=== PATIENT | male | born 1935 | race Caucasian/White ===

== ENCOUNTER 2017-06-27 17:37 | Inpatient (IN) | payer OTHER ==
--- NOTE | 2017-06-27 18:18 | EDPHY ---
H & P Stated Complaint: cough, sore throat, fever, nasal cogestion x 2 days HPI/ROS: CHIEF COMPLAINT: Fever, cough, confusion HISTORY OF PRESENT ILLNESS: The patient is an 81 y/o male with h/o HTN arriving with his family complaining of a fever onset yesterday. They measured his fever at home as high as 103F, but it improved with antipyretics. He is staying hydrated with Pedialyte and is able to eat. He has an associated mild cough and sore throat. He denies chest pain or dyspnea, but his family has observed him gasping occasionally. [place]. He says his "memory isn't so good" and his family says this is a recent development and he seems more confused than normal with these symptoms. Denies abdominal pain, nausea, vomiting. He had a flu vaccination one week ago. He denies history of cardiac disease. He does get occasional leg swelling. REVIEW OF SYSTEMS: A ten point review of systems was performed and is negative with the exception of the items mentioned in the HPI. Past medical history: Hypercholesterolemia, hypertension, osteoarthritis, prior episode of pneumonia ~5yrs ago Past surgical history: Tonsillectomy, appendectomy Family history: Noncontributory Social history: and son at bedside. Visiting from [place], arrived 6 days ago. Retired lower school music teacher. Has not smoked for decades. General Appearance: Alert. Vital signs reviewed. 88% on room air. Blood pressure 151/66. Eyes: Pupils equal and round, no conjunctival injection, no discharge. Anicteric. ENT, Mouth: Mucous membranes are moist, no oropharyngeal erythema or edema. Neck: No lymphadenopathy, supple. Respiratory: Lungs are clear to auscultation; no wheezes, rales, or rhonchi. Cardiovascular: Regular rate and rhythm; no murmur, rub, or gallop. Gastrointestinal: Abdomen is soft and nontender, no masses or organomegaly, bowel sounds normal. Skin: Warm and dry, no rashes on exposed skin, normal color. Back: Nontender to palpation over the thoracolumbar spine. No CVAT. Extremities: Trace right lower extremity edema, 1+ left lower extremity edema, no calf tenderness or swelling. Neurological: Alert and oriented. Moving all four extremities easily and equally. Psychiatric: Normal affect. - Personal History Current Tetanus/Diphtheria Vaccine: Unsure Current Tetanus Diphtheria and Acellular Pertussis (TDAP): Unsure - Medical/Surgical History Hx Asthma: No Hx Chronic Respiratory Disease: No Hx Diabetes: No Hx Cardiac Disease: Yes Hx Renal Disease: No Hx Cirrhosis: No Hx Alcoholism: No Hx HIV/AIDS: No Hx Splenectomy or Spleen Trauma: No Other PMH: HTN, High cholest - Social History Smoking Status: Never smoked Constitutional: Initial Vital Signs Temperature (C) 38.1 C 06/27/17 17:43 Respiratory Rate 97 H 06/27/17 17:43 Blood Pressure 151/66 H 06/27/17 17:43 O2 Sat (%) 88 L 06/27/17 17:43 O2 Delivery Mode Nasal Cannula O2 (L/minute) 2 Allergies/Adverse Reactions: No Known Allergies Allergy (Verified 06/27/17 17:40) Home Medications: Medication Instructions Recorded Naproxen 500 mg PO BID PRN 06/25/14 amLODIPine BESYLATE [Norvasc 5 mg 5 mg PO DAILY 06/25/14 (*)] Ibuprofen [Motrin (*)] 400 mg PO Q8H PRN 06/27/17 Rosuvastatin Calcium [Crestor 10mg 10 mg PO DAILY 06/27/17 (RX)] Medical Decision Making - Diagnostics Imaging Results: Imaging Impressions Chest X-Ray 06/27/17 18:26 Impression: 1. Mild cardiomegaly. 2. Moderate perihilar bronchial wall thickening, suggestive of a virally- mediated bronchitis. There is no focal alveolar consolidation or pleural effusion. Imaging: Discussed imaging studies w/ recycling worker Radiologist, I viewed and interpreted images myself ED Course/Re-evaluation: This is an 81 y/o male who [place] and presents with a 1-day history of fever, cough, and ltfei-kdqj-pdebry confusion per family. He was hypoxemic in triage at 88% and has required O2 here. His lungs are clear on auscultation and he has some lower extremity edema on exam. He is afebrile. Plan for sepsis work up including IV, labs, UA, EKG, and chest x-ray. The 12 lead EKG was interpreted by myself. Sinus mechanism. See hard copy and/ or "tracemaster" electronic copy for interpretation. Troponin elevated at 0.053. Chest x-ray shows possible bronchitis per radiology. No infiltrate. No pulmonary edema. He has a positive flu A swab. I have recommended admission to him and his family for further observation and to monitor oxygenation status. Spoke with hospitalist service. Dr. Motta accepts admission. Differential Diagnosis: Fever in adults including but not limited to pneumonia, urinary tract infection , viral syndrome, and influenza. - Data Points Laboratory Results: Laboratory Results 06/27/17 18:39 06/27/17 18:39 06/27/17 06/27/17 06/27/17 20:00 18:39 18:39 WBC RBC Hgb Hct MCV MCH MCHC RDW Plt Count MPV Neut % (Auto) Lymph % (Auto) Coleman % (Auto) Eos % (Auto) Baso % (Auto) Nucleat RBC Rel Count Absolute Neuts (auto) Absolute Lymphs (auto) Absolute Monos (auto) Absolute Eos (auto) Absolute Basos (auto) Absolute Nucleated RBC Immature Gran % Immature Gran # VBG Lactic Acid 1.1 mmol/L mmol/L (0.7-2.1) Sodium 139 mEq/L mEq/L (134-144) Potassium 4.5 mEq/L mEq/L (3.5-5.2) Chloride 102 mEq/L mEq/L (97-110) Carbon Dioxide 25 mEq/l mEq/l (22-31) Anion Gap 12 mEq/L mEq/L (8-16) BUN 33 mg/dL H mg/dL (7-23) Creatinine 1.6 mg/dL H mg/dL (0.7-1.3) Estimated GFR 41 Glucose 117 mg/dL H mg/dL (70-100) Calcium 8.5 mg/dL mg/dL (8.5-10.4) Total Bilirubin 0.9 mg/dL mg/dL (0.1-1.4) Troponin I 0.053 ng/mL H ng/mL (0.000-0.034) NT-Pro-B Natriuret Pep 438 pg/mL pg/mL (0-450) Urine Color YELLOW Urine Appearance MODERATELY TURBID Urine pH 5.0 (5.0-7.5) Ur Specific [place] 1.023 (1.002-1.030) Urine Protein 2+ H (NEGATIVE) Urine Ketones NEGATIVE (NEGATIVE) Urine Blood 3+ H (NEGATIVE) Urine Nitrate NEGATIVE (NEGATIVE) Urine Bilirubin NEGATIVE (NEGATIVE) Urine Urobilinogen 2.0 EU H EU (0.2-1.0) Ur Leukocyte Esterase NEGATIVE (NEGATIVE) Urine RBC 1-3 /hpf /hpf (0-3) Urine WBC 1-3 /hpf /hpf (0-3) Ur Epithelial Cells TRACE /lpf /lpf (NONE-1+) Urine Mucus TRACE /lpf /lpf (NONE-1+) Urine Glucose NEGATIVE (NEGATIVE) 06/27/17 18:39 WBC 9.25 10^3/uL 10^3/uL (3.80-9.50) RBC 3.87 10^6/uL L 10^6/uL (4.40-6.38) Hgb 12.3 g/dL L g/dL (13.7-17.5) Hct 35.8 % L % (40.0-51.0) MCV 92.5 fL fL (81.5-99.8) MCH 31.8 pg pg (27.9-34.1) MCHC 34.4 g/dL g/dL (32.4-36.7) RDW 13.0 % % (11.5-15.2) Plt Count 151 10^3/uL 10^3/uL (150-400) MPV 9.4 fL fL (8.7-11.7) Neut % (Auto) 79.6 % H % (39.3-74.2) Lymph % (Auto) 11.7 % L % (15.0-45.0) Coleman % (Auto) 8.0 % % (4.5-13.0) Eos % (Auto) 0.0 % L % (0.6-7.6) Baso % (Auto) 0.2 % L % (0.3-1.7) Nucleat RBC Rel Count 0.0 % % (0.0-0.2) Absolute Neuts (auto) 7.36 10^3/uL H 10^3/uL (1.70-6.50) Absolute Lymphs (auto) 1.08 10^3/uL 10^3/uL (1.00-3.00) Absolute Monos (auto) 0.74 10^3/uL 10^3/uL (0.30-0.80) Absolute Eos (auto) 0.00 10^3/uL L 10^3/uL (0.03-0.40) Absolute Basos (auto) 0.02 10^3/uL 10^3/uL (0.02-0.10) Absolute Nucleated RBC 0.00 10^3/uL 10^3/uL (0-0.01) Immature Gran % 0.5 % % (0.0-1.1) Immature Gran # 0.05 10^3/uL 10^3/uL (0.00-0.10) VBG Lactic Acid Sodium Potassium Chloride Carbon Dioxide Anion Gap BUN Creatinine Estimated GFR Glucose Calcium Total Bilirubin Troponin I NT-Pro-B Natriuret Pep Urine Color Urine Appearance Urine pH Ur Specific [place] Urine Protein Urine Ketones Urine Blood Urine Nitrate Urine Bilirubin Urine Urobilinogen Ur Leukocyte Esterase Urine RBC Urine WBC Ur Epithelial Cells Urine Mucus Urine Glucose Microbiology Results: MICROBIOLOGY 06/27/17 18:55 Nasal, Sinus - Swab Respiratory Panel (PCR) - Final Influenza Virus Type A H3 Medications Given: Discontinued Medications Oseltamivir Phosphate (Tamiflu) 75 mg PO EDNOW ONE Stop: 06/27/17 21:01 Last Admin: 06/27/17 21:10 Dose: 75 mg Departure - Departure Disposition: [facility] Inpatient Acute Clinical Impression: Hypoxemia, Cough, Flu Condition: Fair Report Scribed for: Hannah Dutta Report Scribed by: Lakesha Mederos Date of Report: 06/27/17 Time of Report: 18:41 Physician Review and Approval Statement: 06/27/17 18:18 Portions of this note were transcribed by the medical management trainer. I, Dr. Hannah Dutta, personally performed the history, physical exam, and medical decision- making; and confirmed the accuracy of the information in the transcribed note.
[2017-06-27 18:52] LABS: % IMMATURE GRANULYOCYTES 0.5 % (0.0-1.1); ABSOLUTE IMMATURE GRANULOCYTES 0.05 10^3/uL (0.00-0.10); ADD DIFF? NO; ADD MORPH? NO; ADD SCAN? NO; ATYPICAL LYMPHOCYTE FLAG 0 (0-99); FRAGMENT RBC FLAG 0 (0-99); HEMATOCRIT 35.8 % (40.0-51.0); HEMOGLOBIN 12.3 g/dL (13.7-17.5); LEFT SHIFT FLG 10 (0-99); LIPEMIA HEMOLYSIS FLAG 90 (0-99); MEAN CELL HEMOGLOBIN 31.8 pg (27.9-34.1); MEAN CELL HEMOGLOBIN CONCENTR. 34.4 g/dL (32.4-36.7); MEAN CELL VOLUME 92.5 fL (81.5-99.8); MEAN PLATELET VOLUME 9.4 fL (8.7-11.7); PLATELET CLUMPS FLAG 0 (0-99); PLATELET COUNT 151 10^3/uL (150-400); RED BLOOD CELL COUNT 3.87 10^6/uL (4.40-6.38)
--- NOTE | 2017-06-27 19:04 | CPEKG ---
Heart Rate: 88 RR Interval: 682 P-R Interval: 156 QRSD Interval: 80 QT Interval: 384 QTC Interval: 465 P Vermillion: 31 QRS Vermillion: 25 T Wave [place]illion: 15 EKG Severity - BORDERLINE ECG - EKG Impression: SINUS RHYTHM EKG Impression: PROBABLE LEFT ATRIAL ABNORMALITY EKG Impression: BORDERLINE T WAVE ABNORMALITIES Electronically Signed By: Hannah Dutta 27-Jun-2017 20:48:05
[2017-06-27 19:06] LABS: ANION GAP 12 mEq/L (8-16); BILIRUBIN,TOTAL 0.9 mg/dL (0.1-1.4); CALCIUM 8.5 mg/dL (8.5-10.4); CARBON DIOXIDE 25 mEq/l (22-31); CHLORIDE 102 mEq/L (97-110); CREATININE 1.6 mg/dL (0.7-1.3); GLOMERULAR FILTRATION RATE 41; GLUCOSE 117 mg/dL (70-100); POTASSIUM 4.5 mEq/L (3.5-5.2); SODIUM 139 mEq/L (134-144)
[2017-06-27 19:19] LABS: TROPONIN I 0.053 ng/mL (0.000-0.034)
[2017-06-27 20:15] LABS: COLOR YELLOW; LEUKOCYTE ESTERASE,URINE NEGATIVE (NEGATIVE); NITRITE,URINE NEGATIVE (NEGATIVE)
[2017-06-27 20:20] LABS: MUCUS TRACE /lpf (NONE-1+)
[2017-06-27] MEDS ORDERED: OSELTAMIVIR PHOSPHATE 75 MG CAP PO ONE (21:00)
[2017-06-27] MEDS ORDERED: ONDANSETRON 4 MG/2 ML VIAL IVP PRN (23:01)
[2017-06-27] MEDS ORDERED: ACETAMINOPHEN 325 MG TAB PO PRN (23:01)
[2017-06-27] MEDS ORDERED: HYDROCODONE/APAP 5/325 TAB PO PRN (23:01)
[2017-06-27] MEDS: NS 1,000 ML IV SCH (23:26)
[2017-06-28 05:09] LABS: % IMMATURE GRANULYOCYTES 0.1 % (0.0-1.1); ABSOLUTE IMMATURE GRANULOCYTES 0.01 10^3/uL (0.00-0.10); ADD DIFF? NO; ADD MORPH? NO; ADD SCAN? NO; ATYPICAL LYMPHOCYTE FLAG 0 (0-99); FRAGMENT RBC FLAG 0 (0-99); HEMOGLOBIN 11.3 g/dL (13.7-17.5); LEFT SHIFT FLG 10 (0-99); LIPEMIA HEMOLYSIS FLAG 80 (0-99); MEAN CELL HEMOGLOBIN 31.3 pg (27.9-34.1); MEAN CELL HEMOGLOBIN CONCENTR. 33.2 g/dL (32.4-36.7); MEAN CELL VOLUME 94.2 fL (81.5-99.8); MEAN PLATELET VOLUME 9.3 fL (8.7-11.7); PLATELET CLUMPS FLAG 0 (0-99); PLATELET COUNT 137 10^3/uL (150-400); RED BLOOD CELL COUNT 3.61 10^6/uL (4.40-6.38); RED CELL DISTRIBUTION WIDTH 12.9 % (11.5-15.2)
[2017-06-28 05:26] LABS: ANION GAP 13 mEq/L (8-16); CARBON DIOXIDE 24 mEq/l (22-31); CHLORIDE 104 mEq/L (97-110); CREATININE 1.5 mg/dL (0.7-1.3); GLOMERULAR FILTRATION RATE 45; GLUCOSE 106 mg/dL (70-100); POTASSIUM 3.9 mEq/L (3.5-5.2); SODIUM 141 mEq/L (134-144)
[2017-06-28 05:38] LABS: TROPONIN I 0.046 ng/mL (0.000-0.034)
[2017-06-28] MEDS ORDERED: IBUPROFEN 200 MG TAB PO PRN (07:54)
[2017-06-28] MEDS ORDERED: OSELTAMIVIR PHOSPHATE 75 MG CAP PO SCH (08:00)
--- NOTE | 2017-06-28 09:50 | PDGENHP ---
History and Physical - Chief Complaint fever, cough, confusion - History of Present Illness Source - patient provides history and is fair historian. family has left for evening. EMR reviewed. HPI - Pleasant 81 yo F with pmx significant for HTN, HLD, OA who presents to the ED with family earlier today with concerns for fevers/cough/sob and increase in confusion. Patient denies any known sick contacts. He recently travelled her from [facility] 1 week ago. Patient reports symptoms started shortly after arrival to [place]. Patient states he received his flu shot prior to his visit. Patient family reported fever up to 103F at home. Patient denies any acute joint/muscle aches/pains. He reports rhinorrhea, occasionally productive cough and sob worse with exertion. Patient denies any chills or sweats. Patient repors his SOB improved since arrival and placement with oxygen. In the ED patient was noted to be hypoxic to 88% on RA. History Information - Allergies/Home Medication List Allergies/Adverse Reactions: No Known Allergies Allergy (Verified 06/27/17 17:40) Home Medications: Naproxen 500 mg PO BID PRN 06/25/14 [Last Taken 1 Week Ago ~06/20/17] amLODIPine BESYLATE [Norvasc 5 mg (*)] 5 mg PO DAILY 06/25/14 [Last Taken ] Ibuprofen [Motrin (*)] 400 mg PO Q8H PRN 06/27/17 [Last Taken 06/27/17 15:00] Rosuvastatin Calcium [Crestor 10mg (RX)] 10 mg PO DAILY 06/27/17 [Last Taken ] I have personally reviewed and updated: family history, medical history, social history, surgical history - Past Medical History arthritis (knees), hypertension, hyperlipidemia, pneumonia (2012) - Surgical History Additional surgical history: T/A. Appy - Family History Additional family history: patient denies any DM, HTN, CAD in the family. patient has adult childre adn reports all healthy. - Social History Smoking Status: Former smoker Alcohol Use: Occasionally Drug Use: None Additional social history: patient is . Lives with in [place]. Visiting son and [id number] for 3 weeks. COR - FULL. Review of Systems Review of Systems: ROS: 10pt was reviewed & negative except for what was stated in HPI & below Constitutional: Reports: fever, recent illness, other (no sweats. ). Denies: chills EENMT: Reports: nose congestion. Denies: ear discharge, blurred vision, eye pain, mouth pain, sore throat Cardiac: Denies: chest pain, edema, lightheadedness, palpitations Respiratory: Reports: cough (occasionally productive), shortness of breath ( exertional) Gastrointestinal: Denies: vomitting, diarrhea, nausea Genitourinary: Denies: dysuria, hematuria Muscolosketal: Reports: joint pain (bilateral knee pain). Denies: muscle pain, neck pain Skin: Reports: no symptoms. Denies: change in color, rash Neurological: Reports: no symptoms, other (memory deficits). Denies: anxiety, depressed, numbness, tingling, tremors, weakness Hematologic/Lymphatic: Denies: easy bleeding, easy bruising Physical Exam Physical Exam: Selected Entries 06/27/17 06/27/17 17:43 23:46 Blood Pressure Automatic Method Heart Rate 93 Respiratory 97 H 28 H Rate O2 Sat (%) 88 L 96 Temperature (C) 38.1 C 37.2 C Blood Pressure 151/66 H 166/57 H Mean Arterial 94 93 Pressure (MAP) O2 (L/minute) 2 Activity During At Rest Vital Signs O2 Delivery Room Air Nasal Cannula Mode Blood Pressure Right Source Upper Arm Temperature Oral Oral Source Temp Pulse Resp BP Pulse Ox 38.2 C 100 23 H 128/44 H 92 06/28/17 08:00 06/28/17 09:12 06/28/17 08:00 06/28/17 08:00 06/28/17 09:12 O2 (L/minute) 2 Constitutional: no apparent distress, not in pain, chronically ill appearing, obese, No uncomfortable Eyes: PERRL, anicteric sclera, EOMI, No icteric sclera, No scleral injection Ears, Nose, Mouth, Throat: poor dentition, dry mucous membranes, other (no nasal discharge. no oropharyngeal erythema/exudates. ), No no oral mucosal ulcers Cardiovascular: regular rate and rhythym, no murmur, rub, or gallop, edema (1+ pitting with chronic LE skin changes. ), other (slightly distant heart sounds 2/ 2 body habitus. ), No systolic murmur Peripheral Pulses: 1+: dorsalis-pedis (R), dorsalis-pedis (L) Respiratory: no respiratory distress, inspiratory crackles (basilar), No expiratory wheeze Gastrointestinal: normoactive bowel sounds, soft, non-tender abdomen, no palpable masses, other (obese abdomen), No guarding, No rebound, No distension Genitourinary: No no bladder tenderness, No pringle in urethra Skin: warm, normal color, other (patient appears a little flushed. nontoxic. ) Musculoskeletal: generalized weakness (patient requires assistance sitting up in bed. ), No no muscle tenderness Neurologic: AAOx3, sensation intact bilaterally, CN II-XII Intact, No weakness, No numbness, No facial droop Psychiatric: interacting appropriately, thought process linear, poor memory, other (patient in good spirits. ), No not anxious, No not encephalopathic, No anxious, No depressed, No poor insight, No poor judgement Lab Data & Imaging Review 06/28/17 04:16 06/28/17 04:16 WBC 7.37 10^3/uL (3.80-9.50) 06/28/17 04:16 RBC 3.61 10^6/uL (4.40-6.38) L 06/28/17 04:16 Hgb 11.3 g/dL (13.7-17.5) L 06/28/17 04:16 Hct 34.0 % (40.0-51.0) L 06/28/17 04:16 MCV 94.2 fL (81.5-99.8) 06/28/17 04:16 MCH 31.3 pg (27.9-34.1) 06/28/17 04:16 MCHC 33.2 g/dL (32.4-36.7) 06/28/17 04:16 RDW 12.9 % (11.5-15.2) 06/28/17 04:16 Plt Count 137 10^3/uL (150-400) L 06/28/17 04:16 MPV 9.3 fL (8.7-11.7) 06/28/17 04:16 Neut % (Auto) 75.2 % (39.3-74.2) H 06/28/17 04:16 Lymph % (Auto) 15.5 % (15.0-45.0) 06/28/17 04:16 Perry % (Auto) 8.8 % (4.5-13.0) 06/28/17 04:16 Eos % (Auto) 0.1 % (0.6-7.6) L 06/28/17 04:16 Baso % (Auto) 0.3 % (0.3-1.7) 06/28/17 04:16 Nucleat RBC Rel Count 0.0 % (0.0-0.2) 06/28/17 04:16 Absolute Neuts (auto) 5.54 10^3/uL (1.70-6.50) 06/28/17 04:16 Absolute Lymphs (auto) 1.14 10^3/uL (1.00-3.00) 06/28/17 04:16 Absolute Monos (auto) 0.65 10^3/uL (0.30-0.80) 06/28/17 04:16 Absolute Eos (auto) 0.01 10^3/uL (0.03-0.40) L 06/28/17 04:16 Absolute Basos (auto) 0.02 10^3/uL (0.02-0.10) 06/28/17 04:16 Absolute Nucleated RBC 0.00 10^3/uL (0-0.01) 06/28/17 04:16 Immature Gran % 0.1 % (0.0-1.1) 06/28/17 04:16 Immature Gran # 0.01 10^3/uL (0.00-0.10) 06/28/17 04:16 VBG Lactic Acid 1.1 mmol/L (0.7-2.1) 06/27/17 18:39 Sodium 141 mEq/L (134-144) 06/28/17 04:16 Potassium 3.9 mEq/L (3.5-5.2) 06/28/17 04:16 Chloride 104 mEq/L (97-110) 06/28/17 04:16 Carbon Dioxide 24 mEq/l (22-31) 06/28/17 04:16 Anion Gap 13 mEq/L (8-16) 06/28/17 04:16 BUN 31 mg/dL (7-23) H 06/28/17 04:16 Creatinine 1.5 mg/dL (0.7-1.3) H 06/28/17 04:16 Estimated GFR 45 06/28/17 04:16 Glucose 106 mg/dL (70-100) H 06/28/17 04:16 Calcium 8.0 mg/dL (8.5-10.4) L 06/28/17 04:16 Total Bilirubin 0.9 mg/dL (0.1-1.4) 06/27/17 18:39 Troponin I 0.046 ng/mL (0.000-0.034) H 06/28/17 04:16 NT-Pro-B Natriuret Pep 438 pg/mL (0-450) 06/27/17 18:39 Urine Color YELLOW 06/27/17 20:00 Urine Appearance MODERATELY TURBID 06/27/17 20:00 Urine pH 5.0 (5.0-7.5) 06/27/17 20:00 Ur Specific [place] 1.023 (1.002-1.030) 06/27/17 20:00 Urine Protein 2+ (NEGATIVE) H 06/27/17 20:00 Urine Ketones NEGATIVE (NEGATIVE) 06/27/17 20:00 Urine Blood 3+ (NEGATIVE) H 06/27/17 20:00 Urine Nitrate NEGATIVE (NEGATIVE) 06/27/17 20:00 Urine Bilirubin NEGATIVE (NEGATIVE) 06/27/17 20:00 Urine Urobilinogen 2.0 EU (0.2-1.0) H 06/27/17 20:00 Ur Leukocyte Esterase NEGATIVE (NEGATIVE) 06/27/17 20:00 Urine RBC 1-3 /hpf (0-3) 06/27/17 20:00 Urine WBC 1-3 /hpf (0-3) 06/27/17 20:00 Ur Epithelial Cells TRACE /lpf (NONE-1+) 06/27/17 20:00 Urine Mucus TRACE /lpf (NONE-1+) 06/27/17 20:00 Urine Glucose NEGATIVE (NEGATIVE) 06/27/17 20:00 Imaging Review: Upright Chest, PA and Lateral Views, at 6:46 PM Clinical History: 81-year-old male who is sick with a cough, fever, and shortness of breath. Comparison Study: None. Findings: Oxygen tubing is present. The cardiac silhouette is mildly enlarged in size. There is a moderate degree of central perihilar bronchial wall thickening. There is no fluid focal infiltrate , atelectasis, pleural effusion, peripheral interstitial edema, or pneumothorax. The trachea is midline. The osseous structures are age-appropriate, with DISH of the thoracic spine and advanced degenerative change of the visualized lumbar spine. Impression: 1. Mild cardiomegaly. 2. Moderate perihilar bronchial wall thickening, suggestive of a virally- mediated bronchitis. There is no focal alveolar consolidation or pleural effusion. GUANAKITO BOWMAN : 1935 Age: 81 FED UNIT NUM: [id number] PHYS: Hannah Dutta MD Report Status: Signed 1 of 1 Visualized and Interpreted Chest x-ray results: Yes Chest X-Ray results: no infiltrate, other (peribronchial wall thickening c/w virally mediated process) Visualized and Interpreted imaging results: Yes Visualized and Interpreted EKG results: Yes EKG Interpretation: Positive for: normal sinsus rhythm EKG additional interpertation: NSR 80s. no acute ST changes. t wave flattening inferior leads. no acute ST elevations. QTc 465 Assessment & Plan Assessment: 1. hypoxia - patient requiring minimal o2 supplementation. will titrate as needed to maintain o2 sat > 90%. exertional RA pulse ox in AM should home oxygen be required. 2. URI with influenza A - continue Tamiflu. 3. confusion - patient answers questions appropriate. possible change in mentation related to hypoxia or infectious status. overall memory is fair. family not available to review patient baseline. 4. benign essential HTN - monitor BPs. resume patient home amlodipine. 5. HLD - resume statin 6. obesity - cardiac diet. FEN - IVF overnight. electrolyate replacement prn. cardiac diet. PPX - SCDs. lovenox if patient should stay additional day. COR - FULL. Dispo -Admit obesevation on medical floor pending sx status.
[2017-06-28] MEDS: ROSUVASTATIN CALCIUM 10 MG TAB PO SCH (10:31)
[2017-06-28] MEDS: amLODIPine BESYLATE 5 MG TAB PO SCH (10:32)
[2017-06-28] MEDS: ENOXAPARIN 40 MG/0.4 ML SYR SC SCH (10:36)
--- NOTE | 2017-06-28 14:37 | ASMTCMCOM ---
CM Note CM Note Notes: Pt admitted with hypoxia and Influenza A. From [place], here a week visiting family. Hx HTN. No PT/OT orders at this time. CM will follow for any d/c needs. Date Signed: 06/28/2017 02:36 PM Electronically Signed By:DONN Thompson
[2017-06-28] MEDS: NS 1,000 ML IV SCH (15:13)
--- NOTE | 2017-06-28 15:39 | HOSPPROG ---
Hospitalist Progress Note Assessment/Plan: Patient is an 81-year-old gentleman who has a history of hypertension hyperlipidemia and osteoarthritis. He presented the emergency room with fevers cough shortness of breath and increased confusion. He recently traveled from the [place] area. His family reports that he has fevers up to 103 at home today is my 1st encounter with the patient. Chart reviewed. * acute hypoxemia requiring 3-4 liters of O2 normally on room air * influenza a with bronchitis tamiflu,will order azithromycin lungs congested, dry cough will add guaifenesin * confusion per his , he has some short term memory loss will see if he clears with treatment for the above * elevated troponin Likely demand ischemia due to the above *obesity with a BMI of 29 kg *BPH *HLD *dvt prophylaxis:LMWh *Plan:patient will require another midnight stay for close monitoring/ he is requiring oxygen and is feeling poorly. Repeat labs in a.m., add antibiotic and follow. Subjective: nOi wants to sleep. tired. Objective: Vital Signs Temp Pulse Resp BP Pulse Ox 37.4 C 96 20 159/64 H 93 06/28/17 11:11 06/28/17 11:11 06/28/17 11:11 06/28/17 11:11 06/28/17 11:11 Laboratory Results 06/28/17 04:16 06/28/17 04:16 06/27/17 06/28/17 06/29/17 05:59 05:59 05:59 Intake Total 1800 Output Total 100 450 Balance -100 1350 - Physical Exam Constitutional: chronically ill appearing, obese, uncomfortable Eyes: PERRL Ears, Nose, Mouth, Throat: hearing normal Cardiovascular: regular rate and rhythym Respiratory: rhonchi (scattered throughout, decreased at bases) Skin: warm Musculoskeletal: full muscle strength Neurologic: AAOx3 Psychiatric: interacting appropriately ICD10 Worksheet Patient Problems: Problems Problem Status Onset Cough Acute Flu Acute Hypoxemia Acute
[2017-06-28] MEDS: AZITHROMYCIN 250 MG TAB PO SCH (16:51)
--- NOTE | 2017-06-28 17:20 | PDMN ---
Medical Necessity Medical necessity: Patient meets INPT criteria per [facility] [employer] note and [facility] Pulmonary Disease GRG (acute hypoxemia (sat's in mid-80's on RA) w/ influenza A and bronchitis; renal insufficiency / Creat 1.6 ->1.5; hx of HTN, hyperlipidemia and OA; LOS will be > 2 midnights for ongoing IV hydration, supplemental O2, continuation of Tamiflu; need for recheck of labs.).
[2017-06-28] MEDS: OSELTAMIVIR 6 MG/ML UDSYR PO SCH (18:22)
[2017-06-28] MEDS: guaiFENesin 600 MG TAB.ER PO SCH (19:57)
[2017-06-28] MEDS ORDERED: OSELTAMIVIR PHOSPHATE 75 MG CAP PO ONE (21:00)
[2017-06-29 05:12] LABS: ADD MORPH? NO; ADD SCAN? YES; ATYPICAL LYMPHOCYTE FLAG 0 (0-99); FRAGMENT RBC FLAG 0 (0-99); HEMATOCRIT 32.6 % (40.0-51.0); HEMOGLOBIN 10.9 g/dL (13.7-17.5); LEFT SHIFT FLG 170 (0-99); LIPEMIA HEMOLYSIS FLAG 80 (0-99); MEAN CELL HEMOGLOBIN 31.7 pg (27.9-34.1); MEAN CELL HEMOGLOBIN CONCENTR. 33.4 g/dL (32.4-36.7); MEAN CELL VOLUME 94.8 fL (81.5-99.8); MEAN PLATELET VOLUME 9.2 fL (8.7-11.7); PLATELET CLUMPS FLAG 0 (0-99); PLATELET COUNT 132 10^3/uL (150-400); RED BLOOD CELL COUNT 3.44 10^6/uL (4.40-6.38); RED CELL DISTRIBUTION WIDTH 12.9 % (11.5-15.2)
[2017-06-29 05:29] LABS: ALANINE AMINOTRANSFERASE 49 IU/L (21-72); ALKALINE PHOSPHATASE 54 IU/L (38-126); ANION GAP 9 mEq/L (8-16); ASPARTATE AMINOTRANSFERASE 66 IU/L (17-59); BILIRUBIN,TOTAL 0.8 mg/dL (0.1-1.4); CALCIUM 7.9 mg/dL (8.5-10.4); CARBON DIOXIDE 26 mEq/l (22-31); CHLORIDE 104 mEq/L (97-110); CREATININE 1.5 mg/dL (0.7-1.3); GLOMERULAR FILTRATION RATE 45; GLUCOSE 106 mg/dL (70-100); POTASSIUM 3.9 mEq/L (3.5-5.2); SODIUM 139 mEq/L (134-144); TOTAL PROTEIN 5.5 g/dL (6.3-8.2)
[2017-06-29 05:37] LABS: TROPONIN I 0.037 ng/mL (0.000-0.034)
[2017-06-29 05:40] LABS: ADD DIFF? YES; SCAN POSITIVE
[2017-06-29 05:45] LABS: PLATELET ESTIMATE DECREASED (ADEQ); TOXIC GRANULATION PRESENT; TOXIC VACUOLIZATION PRESENT
[2017-06-29 05:46] LABS: MACROCYTES 1+
[2017-06-29 05:53] LABS: PROCALCITONIN 0.27 ng/mL (0.02-0.10)
[2017-06-29] MEDS: ROSUVASTATIN CALCIUM 10 MG TAB PO SCH (09:46)
[2017-06-29] MEDS: amLODIPine BESYLATE 5 MG TAB PO SCH (09:47)
[2017-06-29] MEDS: AZITHROMYCIN 250 MG TAB PO SCH (09:50)
[2017-06-29] MEDS: guaiFENesin 600 MG TAB.ER PO SCH ×2 (09:51→21:29)
[2017-06-29] MEDS: ENOXAPARIN 40 MG/0.4 ML SYR SC SCH (09:52)
[2017-06-29] MEDS: OSELTAMIVIR 6 MG/ML UDSYR PO SCH ×2 (10:02→17:47)
--- NOTE | 2017-06-29 13:59 | HOSPPROG ---
Hospitalist Progress Note Assessment/Plan: Patient is an 81-year-old gentleman who has a history of hypertension hyperlipidemia and osteoarthritis. He presented the emergency room with fevers cough shortness of breath and increased confusion. He recently traveled from the [place] area. His family reports that he has fevers up to 103 at home today is my * acute hypoxemia requiring 3-4 liters of O2 normally on room air * influenza a with bronchitis tamiflu,will order azithromycin + ceftriaxone Procalcitonin 0.27 showing a bacterial infection will add duonebs blood cx NGTD *anemia & thrombocytopenia cont monitoring will need f/u with his PCP * elevated troponin Likely demand ischemia due to the above *renal insufficiency: I am unclear of his baseline/family isn't sure will have him f/u with his PCP *alcohol use 2 drinks a nite / rye will order a glass of wine with dinner not withdrawing *mild encephalopathy clearing per family *obesity with a BMI of 29 kg *BPH *HLD *dvt prophylaxis:LMWh *Plan: he is still requiring 3 liters of O2, slowly improving/ not quite ready for dc Subjective: Don is still feeling poorly. Objective: Vital Signs Temp Pulse Resp BP Pulse Ox 36.8 C 81 20 127/61 H 92 06/29/17 11:57 06/29/17 11:57 06/29/17 11:57 06/29/17 11:57 06/29/17 11:57 Laboratory Results 06/29/17 04:23 06/29/17 04:23 06/28/17 06/29/17 06/30/17 05:59 05:59 05:59 Intake Total 622 Output Total 300 Balance 622 -300 - Physical Exam Constitutional: appears nourished, not in pain, obese Eyes: PERRL Ears, Nose, Mouth, Throat: hearing normal Cardiovascular: regular rate and rhythym Respiratory: no respiratory distress, reduced air movement Gastrointestinal: normoactive bowel sounds Skin: warm Neurologic: AAOx3 Psychiatric: interacting appropriately, not anxious, poor memory ICD10 Worksheet Patient Problems: Problems Problem Status Onset Cough Acute Flu Acute Hypoxemia Acute
[2017-06-29] MEDS ORDERED: BISACODYL 10 MG SUPP PR PRN (17:44)
[2017-06-29] MEDS ORDERED: POLYETHYLENE GLYCOL 3350 17 GM PKT PO PRN (17:44)
[2017-06-29] MEDS ORDERED: LACTULOSE 20 GM/30 ML UDCUP PO PRN (17:44)
[2017-06-29] MEDS: IPRATROPIUM/ALBUTEROL 3 ML DEYVIAL IH SCH (18:04)
[2017-06-29] MEDS: RED WINE 120 ML BOTTLE PO SCH (19:45)
[2017-06-29] MEDS: SENNOSIDES/DOCUSATE SODIUM TAB PO SCH (21:29)
[2017-06-30] MEDS: IPRATROPIUM/ALBUTEROL 3 ML DEYVIAL IH SCH ×4 (00:10→17:34)
[2017-06-30 05:19] LABS: ALANINE AMINOTRANSFERASE 78 IU/L (21-72); ALBUMIN 3.1 g/dL (3.5-5.0); ALKALINE PHOSPHATASE 76 IU/L (38-126); ANION GAP 9 mEq/L (8-16); ASPARTATE AMINOTRANSFERASE 105 IU/L (17-59); BILIRUBIN,TOTAL 0.6 mg/dL (0.1-1.4); CALCIUM 8.2 mg/dL (8.5-10.4); CARBON DIOXIDE 26 mEq/l (22-31); CHLORIDE 104 mEq/L (97-110); CREATININE 1.3 mg/dL (0.7-1.3); GLOMERULAR FILTRATION RATE 53; GLUCOSE 105 mg/dL (70-100); SODIUM 139 mEq/L (134-144); TOTAL PROTEIN 5.6 g/dL (6.3-8.2)
[2017-06-30] MEDS: ROSUVASTATIN CALCIUM 10 MG TAB PO SCH (10:12)
[2017-06-30] MEDS: OSELTAMIVIR 6 MG/ML UDSYR PO SCH ×2 (10:12→19:11)
[2017-06-30] MEDS: guaiFENesin 600 MG TAB.ER PO SCH ×2 (10:12→20:16)
[2017-06-30] MEDS: AZITHROMYCIN 250 MG TAB PO SCH (10:13)
[2017-06-30] MEDS: ENOXAPARIN 40 MG/0.4 ML SYR SC SCH (10:17)
[2017-06-30] MEDS: amLODIPine BESYLATE 5 MG TAB PO SCH (10:17)
[2017-06-30] MEDS: SENNOSIDES/DOCUSATE SODIUM TAB PO SCH ×2 (10:27→20:17)
--- NOTE | 2017-06-30 11:06 | HOSPPROG ---
Hospitalist Progress Note Assessment/Plan: Patient is an 81-year-old gentleman who has a history of hypertension hyperlipidemia and osteoarthritis. He presented the emergency room with fevers cough shortness of breath and increased confusion. He recently traveled from the [place] area. His family reports that he has fevers up to 103 at home. * acute hypoxemia requiring 3 liters of O2 normally on room air will ask nursing staff to do a room air challenge * influenza a with bronchitis tamiflu,will order azithromycin + ceftriaxone Procalcitonin 0.27 showing a bacterial infection will add duonebs blood cx NGTD * afib with rvr/had been in sinus rhythm will get a 12 lead likely from acute illness will ask cards to see CHADS2-VAS2 score is moderate Per , has been told he has had this sometimes *anemia & thrombocytopenia cont monitoring will need f/u with his PCP * elevated troponin Likely demand ischemia due to the above *renal insufficiency: I am unclear of his baseline/family isn't sure will have him f/u with his PCP *alcohol use 2 drinks a nite / rye will order a glass of wine with dinner not withdrawing *mild encephalopathy clearing per family *obesity with a BMI of 29 kg *BPH *HLD *dvt prophylaxis:LMWh *Plan: Dr Avendaño with cardiology to see , appreciate his involvement. Hopefully, the patient will be ready for dc in the next 1-2 days. Subjective: Don is feeling better, but says he isn't feeling quite well enough just yet. Objective: Vital Signs Temp Pulse Resp BP Pulse Ox 37 C 89 18 159/70 H 95 06/30/17 07:51 06/30/17 07:51 06/30/17 07:51 06/30/17 10:17 06/30/17 07:51 Laboratory Results 06/29/17 04:23 06/30/17 04:28 06/29/17 06/30/17 07/01/17 05:59 05:59 05:59 Intake Total 622 673 Output Total 1400 300 Balance 452 -055 -300 - Physical Exam Constitutional: not in pain, chronically ill appearing, obese Eyes: PERRL Ears, Nose, Mouth, Throat: hearing normal Cardiovascular: irregularly irregular Respiratory: no respiratory distress, rhonchi (right base, lung sounds overall improved) Skin: warm Musculoskeletal: generalized weakness Neurologic: AAOx3 Psychiatric: interacting appropriately ICD10 Worksheet Patient Problems: Problems Problem Status Onset Cough Acute Flu Acute Hypoxemia Acute
--- NOTE | 2017-06-30 11:54 | CPEKG ---
Heart Rate: 85 RR Interval: 706 P-R Interval: 128 QRSD Interval: 88 QT Interval: 372 QTC Interval: 443 P [place]: -41 QRS [place]: 23 T Wave [place]: 5 EKG Severity - ABNORMAL ECG - EKG Impression: SINUS RHYTHM EKG Impression: MULTIPLE ATRIAL PREMATURE COMPLEXES EKG Impression: BORDERLINE T WAVE ABNORMALITIES Electronically Signed By: Ajith Baig 01-Jul-2017 11:38:27
--- NOTE | 2017-06-30 12:08 | PDCARCONS ---
Cardiology Consult Reason for Consult: Irregular heart rhythm. Chief Complaint: Irregular heart rhythm. Requesting Physician: Bianca Boston. History of Present Illness: 81-year-old male admitted to the hospital because being on June 27 after he presented with high-grade fevers up to 103 degrees F, cough and confusion. Ultimately, he was diagnosed with influenza a associated with bronchitis and hypoxemia. During his hospitalization here he has been monitored on telemetry. He has been in sinus rhythm occasionally with episodes of an irregular heartbeat sometimes associated with tachycardia. In talking to him, he states that he has been told that he has had an irregular heartbeat in the past. He does not recall ever having been told that he has had atrial fibrillation. He has never been on systemic anticoagulation with Coumadin. He denies any other cardiac history. His is with him today. She is concerned that he might have obstructive sleep apnea. He notes that he is not currently experiencing any anginal quality chest discomfort. He did have an episode of sharp left-sided chest pain which is family related to me as part of this interview. He gives no history of dizziness or lightheadedness. He denies orthopnea, PND and edema. History Information - Allergies/Home Medication List Allergies/Adverse Reactions: No Known Allergies Allergy (Verified 06/27/17 17:40) Home Medications: Naproxen 500 mg PO BID PRN 06/25/14 [Last Taken 1 Week Ago ~06/20/17] amLODIPine BESYLATE [Norvasc 5 mg (*)] 5 mg PO DAILY 06/25/14 [Last Taken ] Ibuprofen [Motrin (*)] 400 mg PO Q8H PRN 06/27/17 [Last Taken 06/27/17 15:00] Rosuvastatin Calcium [Crestor 10mg (RX)] 10 mg PO DAILY 06/27/17 [Last Taken ] I have personally reviewed and updated: family history, medical history, social history, surgical history Past Medical History: - Social History Smoking Status: Former smoker Alcohol Use: Occasionally Drug Use: None Cardiac History - Cardiac History Cardiac Risk Factors: hypertension (>140/90), lipidemia, age > 65, male Physical Exam Physical Exam: Temp Pulse Resp BP Pulse Ox 37 C 89 18 159/70 H 95 06/30/17 07:51 06/30/17 07:51 06/30/17 07:51 06/30/17 10:17 06/30/17 07:51 O2 (L/minute) 3 Constitutional: no apparent distress, other (Wearing nasal cannula oxygen) Eyes: PERRL Ears, Nose, Mouth, Throat: moist mucous membranes Cardiovascular: irregularly irregular, pulses symmetric bilaterally, No diastolic murmur, No JVD, No carotid bruit Peripheral Pulses: 2+: carotid (R), carotid (L) Respiratory: no respiratory distress, no rales or rhonchi, clear to auscultation Gastrointestinal: normoactive bowel sounds, soft, non-tender abdomen, no palpable masses Skin: warm Musculoskeletal: full muscle strength Neurologic: AAOx3 Psychiatric: interacting appropriately Lab and Imaging 06/29/17 04:23 06/30/17 04:28 WBC 7.01 10^3/uL (3.80-9.50) 06/29/17 04:23 RBC 3.44 10^6/uL (4.40-6.38) L 06/29/17 04:23 Hgb 10.9 g/dL (13.7-17.5) L 06/29/17 04:23 Hct 32.6 % (40.0-51.0) L 06/29/17 04:23 MCV 94.8 fL (81.5-99.8) 06/29/17 04:23 MCH 31.7 pg (27.9-34.1) 06/29/17 04:23 MCHC 33.4 g/dL (32.4-36.7) 06/29/17 04:23 RDW 12.9 % (11.5-15.2) 06/29/17 04:23 Plt Count 132 10^3/uL (150-400) L 06/29/17 04:23 MPV 9.2 fL (8.7-11.7) 06/29/17 04:23 Neut % (Auto) Not Reported 06/29/17 04:23 Lymph % (Auto) Not Reported 06/29/17 04:23 [place] % (Auto) Not Reported 06/29/17 04:23 Eos % (Auto) Not Reported 06/29/17 04:23 Baso % (Auto) Not Reported 06/29/17 04:23 Nucleat RBC Rel Count 0.0 % (0.0-0.2) 06/29/17 04:23 Absolute Neuts (auto) Not Reported 06/29/17 04:23 Absolute Lymphs (auto) Not Reported 06/29/17 04:23 Absolute Monos (auto) Not Reported 06/29/17 04:23 Absolute Eos (auto) Not Reported 06/29/17 04:23 Absolute Basos (auto) Not Reported 06/29/17 04:23 Absolute Nucleated RBC 0.00 10^3/uL (0-0.01) 06/29/17 04:23 Immature Gran % Not Reported 06/29/17 04:23 Seg Neutrophils % 35 % 06/29/17 04:23 Band Neutrophils % 39 % 06/29/17 04:23 Lymphocytes % 21 % 06/29/17 04:23 Monocytes % 5 % 06/29/17 04:23 Immature Gran # Not Reported 06/29/17 04:23 Absolute Seg Neuts 2.45 10^/uL (1.70-6.50) 06/29/17 04:23 Absolute Band Neuts 2.73 10^3/uL (0.00-0.70) H 06/29/17 04:23 Absolute Lymphocytes 1.47 10^3/uL (1.00-3.00) 06/29/17 04:23 Absolute Monocytes 0.35 10^3/uL (0.30-0.80) 06/29/17 04:23 Toxic Granulation PRESENT H 06/29/17 04:23 Toxic Vacuolation PRESENT H 06/29/17 04:23 Dohle Bodies PRESENT H 06/29/17 04:23 Platelet Estimate DECREASED (ADEQ) L 06/29/17 04:23 Oval Macrocytes 1+ H 06/29/17 04:23 VBG Lactic Acid 1.1 mmol/L (0.7-2.1) 06/27/17 18:39 Sodium 139 mEq/L (134-144) 06/30/17 04:28 Potassium 4.0 mEq/L (3.5-5.2) 06/30/17 04:28 Chloride 104 mEq/L (97-110) 06/30/17 04:28 Carbon Dioxide 26 mEq/l (22-31) 06/30/17 04:28 Anion Gap 9 mEq/L (8-16) 06/30/17 04:28 BUN 30 mg/dL (7-23) H 06/30/17 04:28 Creatinine 1.3 mg/dL (0.7-1.3) 06/30/17 04:28 Estimated GFR 53 06/30/17 04:28 Glucose 105 mg/dL (70-100) H 06/30/17 04:28 Calcium 8.2 mg/dL (8.5-10.4) L 06/30/17 04:28 Total Bilirubin 0.6 mg/dL (0.1-1.4) 06/30/17 04:28 AST 105 IU/L (17-59) H 06/30/17 04:28 ALT 78 IU/L (21-72) H 06/30/17 04:28 Alkaline Phosphatase 76 IU/L (38-126) 06/30/17 04:28 Troponin I 0.037 ng/mL (0.000-0.034) H 06/29/17 04:23 NT-Pro-B Natriuret Pep 438 pg/mL (0-450) 06/27/17 18:39 Total Protein 5.6 g/dL (6.3-8.2) L 06/30/17 04:28 Albumin 3.1 g/dL (3.5-5.0) L 06/30/17 04:28 Procalcitonin 0.27 ng/mL (0.02-0.10) H 06/29/17 04:23 Urine Color YELLOW 06/27/17 20:00 Urine Appearance MODERATELY TURBID 06/27/17 20:00 Urine pH 5.0 (5.0-7.5) 06/27/17 20:00 Ur Specific [place] 1.023 (1.002-1.030) 06/27/17 20:00 Urine Protein 2+ (NEGATIVE) H 06/27/17 20:00 Urine Ketones NEGATIVE (NEGATIVE) 06/27/17 20:00 Urine Blood 3+ (NEGATIVE) H 06/27/17 20:00 Urine Nitrate NEGATIVE (NEGATIVE) 06/27/17 20:00 Urine Bilirubin NEGATIVE (NEGATIVE) 06/27/17 20:00 Urine Urobilinogen 2.0 EU (0.2-1.0) H 06/27/17 20:00 Ur Leukocyte Esterase NEGATIVE (NEGATIVE) 06/27/17 20:00 Urine RBC 1-3 /hpf (0-3) 06/27/17 20:00 Urine WBC 1-3 /hpf (0-3) 06/27/17 20:00 Ur Epithelial Cells TRACE /lpf (NONE-1+) 06/27/17 20:00 Urine Mucus TRACE /lpf (NONE-1+) 06/27/17 20:00 Urine Glucose NEGATIVE (NEGATIVE) 06/27/17 20:00 Visualized and Interpreted Chest x-ray results: Yes Visualized and Interpreted imaging results: Yes Visualized and Interpreted EKG results: Yes EKG Interpretation: Positive for: normal sinsus rhythm, other (Frequent PACs, nonspecific ST/T changes.) A/P Assessment: 81-year-old male currently admitted to the hospital with influenza a associated with bronchitis. Past medical history significant for hypertension, hyperlipidemia and obesity. During his hospitalization here he has been noted to have an irregular heart rhythm. On his ECG has sinus rhythm with frequent PACs. During periods of time when he is tachycardic this is also noted. I have not seen any indication of atrial fibrillation. He has not experienced any chest pain during this hospitalization although did have an episode of sharp left-sided chest discomfort when he was at home. Does have a mild troponin elevation. His initial troponin at admission was 0.053 and subsequently 0.046 and 0.037. Has not had any ECG changes. Plan: 1. I would like to start low-dose aspirin 162 mg daily. 2. I will order an echocardiogram which can be done in the morning. 3. As long as his echocardiogram is normal I do not think he requires any further inpatient testing. If he has wall motion abnormalities on the echocardiogram I would consider diagnostic coronary angiography. If the echocardiogram is normal I think he can have a stress test done when he returns home. 4. Asked the family to make sure they make an appointment with their primary care doctor when they returned home. I think he would benefit from an outpatient evaluation for sleep apnea and probably pulmonary function testing as well. 5. We also discussed the necessity for weight loss. 6. We will sign off for now. Please re-consult if he has a significantly abnormal echocardiogram. Past Medical History PMH: - Medical/Surgical History Hx Asthma: No Hx Chronic Respiratory Disease: No Hx Cardiac Disease: Yes Hx Diabetes: No Hx Renal Disease: No Hx Alcoholism: No Hx Cirrhosis: No Hx HIV/AIDS: No Hx Splenectomy or Spleen Trauma: No Other PMH: HTN, High cholest - Social History Smoking Status: Former smoker
[2017-06-30] MEDS: ASPIRIN 81 MG CHEWABLE TAB PO SCH (12:55)
--- NOTE | 2017-06-30 14:34 | ASMTCMCOM ---
CM Note CM Note Notes: Chart reviewed. Patientt admitted with fever, influenza. He was seen by [facility] medicine and cardiology today. Like dc tomorrow to home with family. No needs identified. CM to follow. Date Signed: 06/30/2017 02:34 PM Electronically Signed By:Zuleyma Jimenez RN
[2017-06-30] MEDS: RED WINE 120 ML BOTTLE PO SCH (19:11)
[2017-07-01] MEDS: IPRATROPIUM/ALBUTEROL 3 ML DEYVIAL IH SCH ×3 (01:12→10:14)
[2017-07-01 04:20] VITALS: PULSE 86
[2017-07-01 07:28] VITALS: BP 166/67; TEMP 98.1
[2017-07-01] MEDS: AZITHROMYCIN 250 MG TAB PO SCH (08:33)
[2017-07-01] MEDS: amLODIPine BESYLATE 5 MG TAB PO SCH (08:33)
[2017-07-01] MEDS: ASPIRIN 81 MG CHEWABLE TAB PO SCH (08:33)
[2017-07-01] MEDS: guaiFENesin 600 MG TAB.ER PO SCH (08:33)
[2017-07-01] MEDS: ROSUVASTATIN CALCIUM 10 MG TAB PO SCH (08:33)
[2017-07-01] MEDS: SENNOSIDES/DOCUSATE SODIUM TAB PO SCH (08:33)
[2017-07-01] MEDS: ENOXAPARIN 40 MG/0.4 ML SYR SC SCH (08:34)
[2017-07-01] MEDS: OSELTAMIVIR 6 MG/ML UDSYR PO SCH (08:34)
[2017-07-01 10:35] VITALS: RESP 14; O2SAT 98
--- NOTE | 2017-07-01 12:15 | ECHO ---
[email or web address] [address] [address] Main: [phone] Fax: Transthoracic Echocardiogram Name: GUANAKITO BOWMAN MR#: [id number] Study Date: 07/01/2017 Study Time: 07:47 AM Date of : 1935 Age: 81 year(s) Height: 175.3 cm (69 in.) Weight: 92.08 kg (203 lb.) BSA: 2.08 m2 Gender: Male Examination: Echo Indication: Slight TN-I elevation 166 Image Quality: Contrast: Requested by: Julien Avendaño BP: 166 mmHg/67 mmHg Heart Rate: Rhythm: Indication: Slight TN-I elevation Procedure Staff Director Insurance: Winifred Dotson Reading Physician: Jett Mota Requesting Provider: Conclusions: Normal size left ventricle. The ejection fraction is estimated to be 70-75 %. The left atrium is mildly dilated. Mild mitral annular calcification. Mild mitral valve regurgitation is present. Mild aortic valve regurgitation is present. Mild tricuspid regurgitation is present. RVSP is 49mmHG.. Pulmonary valve not well visualized. Measurements: Chambers Valvular Assessment AV/MV Valvular Assessment TV/PV Normal Normal Normal Name Value Range Name Value Range Name Value Range Ao [place]a (MM): 3.5 cm (2.2 cm-3.7 AV meanP mmHg ( - ) TR Vmax: 3.31 mm/s ( - ) cm) MV E Vmax: 0.99 m/s ( - ) TR PGmax: 44 mmHg ( - ) IVSd (2D): 1.0 cm (0.6 cm-1.1 MV A Vmax: 0.99 m/s ( - ) syst. PAP: 49 mmHg ( - ) cm) MV E/A: 1.00 ( - ) LVDd (2D): 5.0 cm (4.2 cm-5.9 cm) LVDs (2D): 3.0 cm (2.1 cm-4 cm) LVPWd (2D): 1.0 cm (0.6 cm-1 cm) LVEF (2D): 70 (>=54 %) EF Range: 70-75 % Continued Measurements: Chambers Valvular Assessment AV/MV Valvular Assessment TV/PV Patient: GUANAKITO BOWMAN Study Date: 07/01/2017 Page 1 of 2 07:47 AM Name Value Name Value Name Value LADs: 4.2 cm MV E/E' Septal: 19.50 CVP (est.): 5 mmHg LADs Lon.3 cm MV E/E' Lateral: 15.30 LA Area: 22.8 cm2 Findings: Left Ventricle: Normal size left ventricle. No LV hypertrophy. Global hypercontractility of the left ventricle. The ejection fraction is estimated to be 70-75 %. No regional wall motion abnormality. Diastolic dysfunction is present. . Right Ventricle: Normal size right ventricle. Left Atrium: The left atrium is mildly dilated. Right Atrium: The right atrium is normal in size. Mitral Valve: Mild mitral annular calcification. Mild mitral valve regurgitation is present. Aortic Valve: The aortic valve is normal in appearance and function. The aortic valve is tri-leaflet. Mild aortic valve regurgitation is present. Tricuspid Valve: The tricuspid valve is normal in appearance and function. Mild tricuspid regurgitation is present. The pulmonary artery pressure is mildly increased. RVSP is 49mmHG.. Pulmonic Valve: Pulmonary valve not well visualized. Aorta: The aorta is normal. Pericardium: No pericardial effusion. (No Signature Object) Patient: GUANAKITO BOWMAN Study Date: 07/01/2017 Page 2 of 2 07:47 AM [id number]
--- NOTE | 2017-07-01 16:38 | ASDISCHSUM ---
Discharge Information Plan Status:Home with No Needs Medically Cleared to Leave:06/30/2017 Discharge Date:07/01/2017 03:11 PM CM D/C Disposition: ADT D/C Disposition:Home, Routine, Self-Care Projected Discharge Date:07/01/2017 12:00 AM Transportation at D/C: Discharge Delay Reason: Follow-Up Date:07/01/2017 12:00 AM Discharge Slot: Final Diagnosis: Placement Information Patient Contact Information Contact Name:MICKY Relationship:Son Address:[address] Work Phone: City:[place] [facility] Phone: State/Zip Code:[place] [address] Email: Financial Information Financial Class:Commercial Primary Plan Desc:[employer] Primary Plan Number:[id number] Secondary Plan Desc: Secondary Plan Number: Assessment Information [facility] CM Progress Note CM Note CM Note Notes: Pt admitted with hypoxia and Influenza A. From [place], here a week visiting family. Hx HTN. No PT/OT orders at this time. CM will follow for any d/c needs. Date Signed: 06/28/2017 02:36 PM Electronically Signed By:DONN Thompson LACE ANA MARIA Length of stay for Answers: 2 days current admission Acuity / Level of Care Answers: Was the patient admitted to hospital via the emergency department? Yes: Emergency dept visits in Answers: 0 last 6 months Score: 5 Date Signed: 06/30/2017 02:32 PM Electronically Signed By:Zuleyma Jimenez RN [facility] Progress Note CM Note CM Note Notes: Chart reviewed. Patientt admitted with fever, influenza. He was seen by [facility] medicine and cardiology today. Like dc tomorrow to home with family. No needs identified. CM to follow. Date Signed: 06/30/2017 02:34 PM Electronically Signed By:Zuleyma Jimenez RN Intervention Information
--- NOTE | 2017-07-01 22:52 | GDS ---
[f rep st] DISCHARGE SUMMARY DISCHARGE DIAGNOSES: Include: 1. Acute influenza A. 2. Acute hypoxic respiratory failure secondary to influenza A and presumed secondary bacterial pneum onia. 3. Presumed bacterial pneumonia secondary to leukocytosis and elevated procalcitonin. 4. Troponin elevation, presumed secondary to acute illness. HISTORY OF PRESENT ILLNESS: This is an 81-year-old male, who presented on 06/28/2017, with complaint s of shortness of breath and weakness. For details of patient's initial presentation, please see the History and Physical dated 06/28/2017. CONSULTATIVE SERVICES: Include Cardiology. PROCEDURES: Transthoracic echocardiogram that showed no segmental wall motion abnormalities. HOSPITAL COURSE: By issue: 1. Acute influenza A, confirmed by respiratory viral panel. The patient was initiated on oseltamivi r and will complete his full 5-day course the day after disposition; he had 3 doses at discharge to [facility]. 2. Presumed bacterial pneumonia. Patient was slow to improve from a respiratory standpoint with donnie kocytosis, persistent symptoms. Procalcitonin was sent and elevated above a level thought related to a viral infection alone. The patient was empirically started on antibiotics for community-acquired bacterial pneumonia. He will complete a course of levofloxacin in the outpatient setting. He has 3 days of levofloxacin to complete a 7-day course. 3. Acute hypoxic respiratory failure secondary to influenza and secondary bacterial pneumonia. The patient was weaned successfully off oxygen on the day of disposition. As above, will complete his co urses of both oseltamivir and antibiotics to complete, Mucinex as needed, and follow in the outpatien t setting with his primary care provider. 4. Troponin excursion. Patient was noted to intermittently have irregular heart beat, thought poten tially atrial fibrillation although none was identified on electrocardiogram or exam. The patient wa s seen by Cardiology; the troponin excursions are explainable by his acute illness with influenza. W e initiated the patient on 161 mg of aspirin. Transthoracic echocardiogram confirmed no segmental wa ll motion abnormalities. The patient will be discharged to see Dr. Avendaño from [facility] in 3-4 w eeks post discharge and complete recovery from his acute influenza for outpatient stress testing as a ppropriate at that time. MEDICATIONS AT THE TIME OF TRANSFER: Please reference medication reconciliation printed on 7. PENDING STUDIES: At the time of disposition: None. APPOINTMENTS: 1. Include with his primary care provider, next week after completion of antibiotics and oseltamivir for his first post discharge followup. 2. With Dr. Sanjay Avendaño from [facility] in the next 3-4 weeks, for post disposition followup and di scussion related to cardiac stress testing. I spent greater than 30 minutes in the planning and coordination of this discharge. /[id number]/MODL
[2017-07-02] MEDS ORDERED: ASPIRIN 81 MG CHEWABLE TAB PO SCH (09:00)
== END 2017-07-01 15:11 | disposition home or self-care (01) | DRG 193 ==
LOC: F3E 21:58 → OBSVTOIN 06-28 16:13
PROVIDERS: ADMIT Internal Medicine; ATTEND Internal Medicine
DX: J10.08 Influenza due to other identified influenza virus with other specified pneumonia (principal); J96.01 Acute respiratory failure with hypoxia; I10 Essential (primary) hypertension; E78.00 Pure hypercholesterolemia, unspecified; E66.9 Obesity, unspecified; N40.0 Benign prostatic hyperplasia without lower urinary tract symptoms; Z87.891 Personal history of nicotine dependence; Z68.29 Body mass index [BMI] 29.0-29.9, adult
CPT/HCPCS: 97116-GP; 97162-GP; 97165-GO; 97530-GO; 97535-GO; G0378; G8978-GP-CJ; G8979-GP-CI; G8980-GP-CI; J0696; J1650